=== PATIENT | female | born 1945 | race Hispanic/Latino ===

== ENCOUNTER 2021-11-29 10:19 | Emergency (ER) | payer MEDICARE ==
[~2021-11-29] VITALS: Ht 165.1 cm; Wt 74.8 kg
[2021-11-29 10:57] LABS: BASOPHILS # (AUTO) 0.1 (0.0-0.1); BASOPHILS % 0.6 % (0.0-1.0); EOSINOPHILS # (AUTO) 0.1 (0.0-0.4); EOSINOPHILS % 1.3 % (0.0-6.0); HEMATOCRIT 41.2 % (34.2-44.1); HEMOGLOBIN 13.6 g/dL (12.0-16.0); LYMPHOCYTES # (AUTO) 2.3 (1.0-3.2); LYMPHOCYTES % 28.6 % (18.0-39.1); MEAN CORPUSCULAR HEMOGLOBIN 28.3 pg (28-32); MEAN CORPUSCULAR VOLUME 85.8 fL (81-99); MONOCYTES # (AUTO) 0.4 (0.2-0.8); MONOCYTES % 4.3 % (4.4-11.3); NEUTROPHILS # (AUTO) 5.3 (2.1-6.9); PLATELET COUNT 195 x10e3/uL (140-360); RED CELL DISTRIBUTION WIDTH 14.3 % (11.7-14.4)
[2021-11-29 11:20] LABS: ALBUMIN 3.7 g/dL (3.5-5.0); ALBUMIN/GLOBULIN RATIO 0.8 (0.8-2.0); CALCIUM 9.4 mg/dL (8.4-10.2); CREATININE, SERUM 0.84 mg/dL (0.57-1.11)
[2021-11-29 12:26] VITALS: BP 187/45
== END 2021-11-29 12:34 | disposition home or self-care (01) ==
LOC: ER 10:30
DX: R06.02 Shortness of breath (principal); R00.1 Bradycardia, unspecified; Z95.5 Presence of coronary angioplasty implant and graft; F17.210 Nicotine dependence, cigarettes, uncomplicated
CPT/HCPCS: 36415; 71045; 80053; 83880; 84484; 85025; 93005; 99284

== ENCOUNTER 2021-12-19 08:45 | Emergency (ER) | payer MEDICARE ==
[~2021-12-19] VITALS: Ht 165.1 cm; Wt 74.8 kg
[2021-12-19] MEDS ORDERED: ACETAMINOPHEN 325 MG TAB PO ONE (09:15)
[2021-12-19] MEDS ORDERED: NAPROXEN250 MG PO (12:48)
== END 2021-12-19 12:57 | disposition home or self-care (01) ==
LOC: ER 09:10
DX: S63.592A Other specified sprain of left wrist, initial encounter (principal); M25.561 Pain in right knee; I10 Essential (primary) hypertension; I25.10 Atherosclerotic heart disease of native coronary artery without angina pectoris; I25.2 Old myocardial infarction; Z95.5 Presence of coronary angioplasty implant and graft; F17.210 Nicotine dependence, cigarettes, uncomplicated
CPT/HCPCS: 99283

== ENCOUNTER 2022-02-16 19:53 | Emergency (ER) | payer MEDICARE ==
[~2022-02-16] VITALS: Ht 165.1 cm; Wt 74.8 kg
[~2022-02-16 19:53] MED LIST: NAPROXEN250 MG PO
[2022-02-16] MEDS ORDERED: TETANUS/DIPHTHERIA TOX ADULT 0.5 ML SYR IM ONE (20:30)
[2022-02-16] MEDS ORDERED: CLINDAMYCIN HC150 MG PO (22:42)
== END 2022-02-16 22:15 | disposition home or self-care (01) ==
LOC: ER 19:58
DX: M79.89 Other specified soft tissue disorders (principal); S92.401A Displaced unspecified fracture of right great toe, initial encounter for closed fracture; I10 Essential (primary) hypertension; I25.2 Old myocardial infarction; I25.10 Atherosclerotic heart disease of native coronary artery without angina pectoris; W20.8XXA Other cause of strike by thrown, projected or falling object, initial encounter; Z88.0 Allergy status to penicillin; Z95.5 Presence of coronary angioplasty implant and graft; Z95.820 Peripheral vascular angioplasty status with implants and grafts
CPT/HCPCS: 90714; 99283